=== PATIENT | female | born 1990 | race Caucasian/White ===

== ENCOUNTER → 2024-07-12 | Outpatient (CLI) | payer OTHER ==
[~2024-07-12] MED LIST: CLIN300 PO; FLUT.05NI; HYDACE5 PO; MULVITMINE PO; NAPR500 PO; NAPR550 PO; ONDA4 PO; PENVK500 PO; PROM25 PO; RANI150 PO; RXHYDACE PO; RXNAPNA550 PO; RXOXYACE PO; SULTRIDS PO
[2024-07-21 13:36] LABS: HPV HIGH RISK BY TMA Not Detected; HPV SOURCE Cervical
== END | disposition home or self-care (01) ==
LOC: LAB 17:49 → LAB SHORT 17:49
PROVIDERS: Physician Assistant
DX: Z01.419 Encounter for gynecological examination (general) (routine) without abnormal findings (principal)
CPT/HCPCS: 87624; G0123

== ENCOUNTER → 2024-08-23 | Outpatient (CLI) | payer OTHER ==
[2024-08-24 19:02] LABS: HIV 1,2 COMBO ANTIGEN/ANTIBODY Negative (Negative)
[2024-08-25 08:37] LABS: HEPATITIS B SURFACE ANTIBODY 23.4 IU/L
[2024-08-25 10:01] LABS: HEPATITIS B SURFACE ANTIGEN Negative (Negative)
[2024-08-28 05:28] LABS: HCV QNT BY NAAT (IU/ML) Not Detected; HCV QNT BY NAAT (LOG IU/ML) Not Detected; HCV QNT BY NAAT INTERP Not Detected (Not Detected)
== END | disposition home or self-care (01) ==
LOC: LAB SHORT 14:49 → LAB 14:49
PROVIDERS: Chiropractor
DX: Z20.9 Contact with and (suspected) exposure to unspecified communicable disease (principal)
CPT/HCPCS: 84460; 87340; 87389; 87522